=== PATIENT | female | born 1950 | race Caucasian/White ===

== ENCOUNTER 2020-05-09 23:51 | Emergency (ER) | payer MEDICARE, OTHER ==
[2020-05-10 01:38] LABS: #Monocytes 0.7 thou/uL (0.11-0.59); #Neutrophils 5.2 thou/uL (1.40-6.50); %Basophils 0.7 % (0.0-1.0); %Eosinophils 0.3 % (0.0-10.0); %Lymphocytes 14.2 % (21.0-51.0); %Monocytes 10.1 % (0.0-10.0); %Neutrophils 74.8 % (42.0-75.0); Hemoglobin 11.9 g/dL (12.0-16.0); Mean Corpuscular Hemoglobin 35.3 pg (27.0-31.0); Mean Platelet Volume 7.9 fL (7.4-10.4); Platelet Count 143 thou/uL (130-400); RBC Distribution Width 11.8 % (11.5-14.5); Red Blood Cell (RBC) Count 3.38 mill/uL (4.20-5.40); White Blood Cell (WBC) Count 6.9 thou/uL (4.8-10.8)
[2020-05-10] MEDS ORDERED: Ondansetron PF 4 MG/2 ML Vial ONE (01:42)
[2020-05-10 01:56] LABS: ALT (SGPT) 20 U/L (8-55); AST (SGOT) 29 U/L (5-34); Albumin 3.6 g/dL (3.4-4.8); Alkaline Phosphatase 279 U/L (40-110); Anion Gap 14 mmol/L (10-20); BUN (Urea Nitrogen) 7 mg/dL (9.8-20.1); Bilirubin, Total 1.6 mg/dL (0.2-1.2); Calc. Creatinine Clearance 0 mL/min (70-130); Calcium 8.7 mg/dL (7.8-10.44); Carbon Dioxide 19 mmol/L (23-31); Chloride 97 mmol/L (98-107); Estimated GFR-MDRD 82; Globulin 3.6 g/dL (2.4-3.5); Glucose 118 mg/dL (80-115); Protein, Total 7.2 g/dL (6.0-8.3); Sodium 126 mmol/L (136-145)
[2020-05-10] MEDS ORDERED: Phenazopyridine HCl 97.5 MG TABLET PO SCH (02:00)
[2020-05-10] MEDS ORDERED: Ciprofloxacin 500 MG TAB ONE (03:51)
[2020-05-10] MEDS ORDERED: Phenazopyridine HCl 97.5 MG TABLET ONE (03:51)
[2020-05-10] MEDS ORDERED: Promethazine HCl 25 MG/ML VIAL ONE (04:43)
[2020-05-10 05:05] LABS: Anion Gap 13 mmol/L (10-20); BUN (Urea Nitrogen) 7 mg/dL (9.8-20.1); Calc. Creatinine Clearance 0 mL/min (70-130); Calcium 8.2 mg/dL (7.8-10.44); Carbon Dioxide 20 mmol/L (23-31); Chloride 99 mmol/L (98-107); Estimated GFR-MDRD 89; Glucose 110 mg/dL (80-115); Potassium 3.8 mmol/L (3.5-5.1); Sodium 128 mmol/L (136-145)
--- NOTE | 2020-05-10 08:20 | CT ---
PRELIMINARY REPORT/[facility]/EMERGENCY AFTER HOURS PROCEDURE EXAM: CT Abdomen and Pelvis Without Intravenous Contrast CLINICAL HISTORY: Patient presents with less than 24 hours of dysuria, frequency, urgency, and hematu dwayne. She was seen at another facility earlier this evening and diagnosed with a UTI. She was prescrib ed Cipro, but has been unable to fill the prescription as no pharmacies were open near her. She compl ains of pain in her bladder. She also reports several hours of nausea with vomiting. TECHNIQUE: Axial computed tomography images of the abdomen and pelvis without intravenous contrast. CONTRAST: None. COMPARISON: None provided. FINDINGS: LUNG BASES: No basilar airspace consolidation or pleural effusion. LIVER: The liver has a nodular contour. The left lobe is enlarged. No identified liver lesion. Gas trohepatic and periesophageal collateral vessels are noted. GALLBLADDER AND BILE DUCTS: Cholecystectomy clips in the gallbladder fossa. Pneumobilia. No ductal d ilation. PANCREAS: Unremarkable. SPLEEN: Unremarkable. ADRENAL GLANDS: Unremarkable. KIDNEYS, URETERS, AND BLADDER: Unremarkable. No hydronephrosis or nephrolithiasis. No ureteral or hailey dder calculi. Diffuse bladder wall thickening with adjacent fat stranding. STOMACH AND BOWEL: Small hiatal hernia. No obstruction. No wall thickening. No CT evidence of coliti s or acute diverticulitis. APPENDIX: No CT evidence for appendicitis. PERITONEUM: No free fluid. No free air. LYMPH NODES: No lymphadenopathy. REPRODUCTIVE: Unremarkable as visualized. VASCULATURE: No aortic aneurysm. ABDOMINAL WALL AND SOFT TISSUES: Unremarkable. BONES: No fracture or suspicious osseous abnormality. Multilevel degenerative disc disease. Osteoar thritis of the bilateral hips and SI joints. IMPRESSION: Diffuse bladder wall thickening with adjacent fat stranding concerning for cystitis. Cirr hotic morphology of the liver. Portal hypertension with gastrohepatic and periesophageal collateral vessels. Pneumobilia. ELECTRONICALLY SIGNED BY: Jorge Tovar MD May 10, 2020 2:56:27 AM CDT FINAL REPORT EMERGENT AFTER HOURS CT OF THE ABDOMEN AND PELVIS WITHOUT CONTRAST: FINDINGS/IMPRESSION: I agree with the findings and impression given in the preliminary report per [facility] physici an. There is questionable stranding change surrounding the urinary bladder which could be secondary to cystitis. Correlate with urinalysis. POS: EAA
== END 2020-05-10 05:49 | disposition home or self-care (01) ==
LOC: ERS 23:51
DX: N39.0 Urinary tract infection, site not specified (principal); E86.0 Dehydration; R11.2 Nausea with vomiting, unspecified
CPT/HCPCS: 36415; 74176; 80053; 83690; 85025; 96361; 96365; 96375; J2405; J2550

== ENCOUNTER 2021-01-22 17:54 | Inpatient (IN) | payer MEDICARE, OTHER ==
[2021-01-22] MEDS ORDERED: Ondansetron ODT 8 MG TAB PO PRN (21:59)
[2021-01-22] MEDS ORDERED: D5 0.9% NS w/ 20 mEq KCl 1,000 ML IV SCH (22:00)
[2021-01-22] MEDS ORDERED: Ondansetron PF 4 MG/2 ML Vial IVP PRN ×2 (22:00→23:26)
[2021-01-22] MEDS ORDERED: Ketorolac Tromethamine 30 MG/ML VIAL IVP PRN ×2 (22:00→22:24)
[2021-01-22] MEDS ORDERED: Fentanyl 100 MCG/2 ML VIAL SLOW IVP PRN ×2 (22:00→23:29)
[2021-01-22 22:14] VITALS: BMI 23.5
[2021-01-22] MEDS ORDERED: Ondansetron ODT 4 MG TAB PO PRN (23:26)
[2021-01-22] MEDS ORDERED: Acetaminophen 325 MG TAB PO PRN (23:26)
[2021-01-22] MEDS: D5 1/2 NS w/10 mEq KCl 1,000 ML/1,000 ML BAG IV SCH (23:36)
[2021-01-22] MEDS ORDERED: Piperacillin/Tazobactam 3.375 GM in Sodium Chloride 0.9% 100 ML IVPB SCH (23:59)
[2021-01-23 02:35] LABS: Bilirubin Negative (Negative); Blood, Urine 1+ (Negative); Clarity Turbid (Clear); Glucose, Urine (Dipstick) Normal (Negative); Ketone, Urine Trace mg/dL (Negative); Leukocyte 500 Leu/uL (Negative); Nitrite Negative (Negative); Protein, Urine (Dipstick) 30 mg/dL (Neg-Trace); Squamous Epithelial 0-3 HPF (0-3); Urobilinogen Normal mg/dL (Less than 2); WBC/HPF Greater than 50 HPF (0-3)
[2021-01-23 02:36] LABS: Bacteria/HPF 2+ HPF (None Seen); Specific Gravity, Urine 1.052 (1.002-1.036)
[2021-01-23 02:38] LABS: SARS-CoV-2 PCR by NAA Not Detected (NotDetected)
[2021-01-23] MEDS: Piperacillin/Tazobactam 3.375 GM in Sodium Chloride 0.9% 100 ML IVPB SCH ×2 (05:00→13:40)
[2021-01-23 05:49] LABS: ALT (SGPT) 17 U/L (8-55); AST (SGOT) 26 U/L (5-34); Albumin 2.8 g/dL (3.4-4.8); Alkaline Phosphatase 193 U/L (40-110); Bilirubin, Direct 0.6 mg/dL (0.1-0.3); Protein, Total 5.7 g/dL (5.8-8.1)
[2021-01-23 05:50] LABS: Anion Gap 9 mmol/L (10-20); BUN (Urea Nitrogen) 8 mg/dL (9.8-20.1); Calc. Creatinine Clearance 69 mL/min (70-130); Calcium 7.8 mg/dL (7.8-10.44); Carbon Dioxide 21 mmol/L (23-31); Chloride 111 mmol/L (98-107); Glucose 116 mg/dL (80-115); Potassium 3.7 mmol/L (3.5-5.1); Sodium 137 mmol/L (136-145)
[2021-01-23 06:17] LABS: Band 1 % (5-11); Eosinophils 5 % (0-10); Hemoglobin 10.3 g/dL (12.0-16.0); Lymphocytes 39 % (21-51); MDiff Complete? YES; Mean Corpuscular HGB CONC 34.3 g/dL (32.0-36.0); Mean Corpuscular Hemoglobin 35.2 pg (27.0-31.0); Mean Platelet Volume 7.7 fL (7.4-10.4); Monocytes 19 % (0-10); Neutrophil 36 % (42-75); Platelet Count 115 thou/uL (130-400); Platelet Morphology Comment Appears Decreased; RBC Distribution Width 11.9 % (11.5-14.5); Red Blood Cell (RBC) Count 2.93 mill/uL (4.20-5.40); White Blood Cell (WBC) Count 4.7 thou/uL (4.8-10.8)
[2021-01-23] MEDS: Pantoprazole 40 MG VIAL IVP SCH (08:28)
[2021-01-23] MEDS: D5 1/2 NS w/10 mEq KCl 1,000 ML/1,000 ML BAG IV SCH ×2 (08:43→18:22)
[2021-01-23] MEDS ORDERED: Ursodiol 300 MG CAP PO SCH (09:00)
[2021-01-23] MEDS: Citalopram 20 MG TAB PO SCH (09:22)
[2021-01-23] MEDS ORDERED: Nitrofurantoin Monohyd/M-Cryst 100 MG CAP PO SCH (12:15)
[2021-01-23] MEDS ORDERED: Ketorolac Tromethamine 30 MG/ML VIAL IVP SCH (14:30)
[2021-01-23] MEDS: Gemfibrozil 600 MG TAB PO SCH (17:43)
[2021-01-23] MEDS: Nitrofurantoin Monohyd/M-Cryst 100 MG CAP PO SCH (20:31)
[2021-01-23] MEDS ORDERED: HYDROcodone/Acetaminophen 5/325 mg Tablet PO PRN (20:38)
[2021-01-23] MEDS: HYDROcodone/Acetaminophen 5/325 mg Tablet PO PRN (20:55)
[2021-01-23] MEDS ORDERED: Magnesium Oxide 400 MG TAB PO SCH (21:00)
[2021-01-24] MEDS: D5 1/2 NS w/10 mEq KCl 1,000 ML/1,000 ML BAG IV SCH ×2 (01:47→08:28)
[2021-01-24 05:55] LABS: #Eosinphils 0.1 thou/uL (0.0-0.7); #Lymphocytes 1.3 thou/uL (1.20-3.40); #Monocytes 0.6 thou/uL (0.11-0.59); #Neutrophils 2.5 thou/uL (1.40-6.50); %Basophils 0.5 % (0.0-1.0); %Eosinophils 2.9 % (0.0-10.0); %Lymphocytes 28.6 % (21.0-51.0); %Monocytes 13.1 % (0.0-10.0); Hemoglobin 9.7 g/dL (12.0-16.0); Mean Corpuscular HGB CONC 34.6 g/dL (32.0-36.0); Mean Corpuscular Hemoglobin 35.8 pg (27.0-31.0); Mean Platelet Volume 7.7 fL (7.4-10.4); Platelet Count 88 thou/uL (130-400); Red Blood Cell (RBC) Count 2.71 mill/uL (4.20-5.40); White Blood Cell (WBC) Count 4.6 thou/uL (4.8-10.8)
[2021-01-24 06:08] LABS: ALT (SGPT) 27 U/L (8-55); AST (SGOT) 49 U/L (5-34); Albumin 2.6 g/dL (3.4-4.8); Alkaline Phosphatase 202 U/L (40-110); Anion Gap 11 mmol/L (10-20); BUN (Urea Nitrogen) 5 mg/dL (9.8-20.1); Bilirubin, Total 1.6 mg/dL (0.2-1.2); Calc. Creatinine Clearance 75 mL/min (70-130); Calcium 7.6 mg/dL (7.8-10.44); Carbon Dioxide 22 mmol/L (23-31); Chloride 108 mmol/L (98-107); Globulin 2.7 g/dL (2.4-3.5); Glucose 113 mg/dL (80-115); Potassium 3.8 mmol/L (3.5-5.1); Protein, Total 5.3 g/dL (5.8-8.1); Sodium 137 mmol/L (136-145)
[2021-01-24 08:18] VITALS: BP 110/59; TEMP 97.9
[2021-01-24] MEDS: Gemfibrozil 600 MG TAB PO SCH ×2 (08:20→16:44)
[2021-01-24] MEDS: Nitrofurantoin Monohyd/M-Cryst 100 MG CAP PO SCH (08:21)
[2021-01-24] MEDS: Citalopram 20 MG TAB PO SCH (08:21)
[2021-01-24] MEDS: Pantoprazole 40 MG VIAL IVP SCH (08:27)
[2021-01-24] MEDS: Ursodiol 300 MG CAP PO SCH ×2 (09:39→15:04)
[2021-01-24] MEDS ORDERED: Ondansetron PF 4 MG/2 ML Vial IVP PRN (10:36)
[2021-01-24] MEDS: HYDROcodone/Acetaminophen 5/325 mg Tablet PO PRN (11:17)
[2021-01-24] MEDS ORDERED: Ondansetron ODT 4 MG TAB PO PRN (11:36)
[2021-01-24] MEDS ORDERED: HYDROcodone/Acetaminophen 5/325 mg Tablet PO PRN (16:06)
== END 2021-01-24 16:50 | disposition home or self-care (01) | DRG 445 ==
LOC: ONC 17:54 → OBSVTOIN 01-24 10:03
PROVIDERS: ADMIT Internal Medicine; ATTEND Internal Medicine
DX: K80.30 Calculus of bile duct with cholangitis, unspecified, without obstruction (principal); N39.0 Urinary tract infection, site not specified; I49.3 Ventricular premature depolarization; E78.5 Hyperlipidemia, unspecified; B96.20 Unspecified Escherichia coli [E. coli] as the cause of diseases classified elsewhere; Z88.1 Allergy status to other antibiotic agents; Z88.5 Allergy status to narcotic agent; Z90.49 Acquired absence of other specified parts of digestive tract; Z90.721 Acquired absence of ovaries, unilateral; Z79.899 Other long term (current) drug therapy
CPT/HCPCS: 36415; 71045; 80048; 80053; 80076; 81001; 85025; 86301; 87077; 87086; 87186; 87635; C9113; G0378; J1885; J2405; J2543; J3010; J3480; J3490; Q0162; U0003; U0005

== ENCOUNTER 2022-09-18 01:07 | Emergency (ER) | payer MEDICARE, OTHER ==
[2022-09-18 01:45] LABS: Hemoglobin 11.4 g/dL (12.0-16.0); Mean Corpuscular Hemoglobin 38.9 pg (27.0-31.0); RBC Distribution Width 13.7 % (11.5-14.5); Red Blood Cell (RBC) Count 2.94 mill/uL (4.20-5.40); White Blood Cell (WBC) Count 4.7 thou/uL (4.8-10.8)
[2022-09-18 02:04] LABS: ALT (SGPT) 36 U/L (8-55); AST (SGOT) 49 U/L (5-34); Albumin 2.6 g/dL (3.4-4.8); Alkaline Phosphatase 207 U/L (40-110); Anion Gap 12 mmol/L (10-20); BUN (Urea Nitrogen) 7 mg/dL (9.8-20.1); Bilirubin, Total 2.9 mg/dL (0.2-1.2); Calc. Creatinine Clearance 0 mL/min (70-130); Calcium 8.2 mg/dL (7.8-10.44); Carbon Dioxide 22 mmol/L (23-31); Chloride 105 mmol/L (98-107); Estimated GFR 86; Globulin 3.8 g/dL (2.4-3.5); Glucose 116 mg/dL (80-115); Lipase 81 U/L (8-78); Potassium 3.6 mmol/L (3.5-5.1); Protein, Total 6.4 g/dL (5.8-8.1); Sodium 135 mmol/L (136-145)
[2022-09-18 02:16] LABS: #Eosinphils 0.1 thou/uL (0.0-0.7); #Lymphocytes 1.5 thou/uL (1.20-3.40); #Monocytes 0.6 thou/uL (0.11-0.59); #Neutrophils 2.5 thou/uL (1.40-6.50); %Basophils 0.4 % (0.0-1.0); %Eosinophils 2.7 % (0.0-10.0); %Lymphocytes 31.6 % (21.0-51.0); %Monocytes 11.8 % (0.0-10.0); %Neutrophils 53.5 % (42.0-75.0); MDiff Complete? YES; Macrocytosis SLIGHT = 6-15 cells (100X) (0-5/hpf); Mean Platelet Volume 7.8 fL (7.4-10.4); Platelet Count 97 thou/uL (130-400); Platelet Morphology Comment Appears Decreased
[2022-09-18] MEDS ORDERED: Ondansetron ODT 4 MG TAB ONE (02:25)
[2022-09-18] MEDS ORDERED: Morphine 4 MG/ML VIAL ONE (04:40)
[2022-09-18 07:12] LABS: Bilirubin 1+ (Negative); Blood, Urine Negative (Negative); Clarity Clear (Clear); Glucose, Urine (Dipstick) Normal (Negative); Ketone, Urine Negative (Negative); Leukocyte Negative Leu/uL (Negative); Nitrite Negative (Negative); Protein, Urine (Dipstick) Negative (Neg-Trace); Specific Gravity, Urine 1.013 (1.002-1.036)
[2022-09-18] MEDS ORDERED: Iopamidol-370 76% 500 ML 1 ML ONE (09:55)
== END 2022-09-18 08:40 | disposition home or self-care (01) ==
LOC: ERS 01:07
DX: K29.60 Other gastritis without bleeding (principal); E78.00 Pure hypercholesterolemia, unspecified
CPT/HCPCS: 36415; 71275; 74174; 80053; 81003; 83605; 83690; 83880; 84484; 85025; 93005; 96361; 96374; J2270; Q0162; Q9967

== ENCOUNTER 2022-09-28 17:31 | Emergency (ER) | payer MEDICARE, OTHER ==
[2022-09-28 18:30] LABS: #Lymphocytes 0.8 thou/uL (1.20-3.40); #Monocytes 0.3 thou/uL (0.11-0.59); #Neutrophils 6.4 thou/uL (1.40-6.50); %Basophils 0.2 % (0.0-1.0); %Eosinophils 0.5 % (0.0-10.0); %Monocytes 4.3 % (0.0-10.0); Hemoglobin 10.7 g/dL (12.0-16.0); Mean Corpuscular HGB CONC 32.5 g/dL (32.0-36.0); Mean Corpuscular Hemoglobin 36.6 pg (27.0-31.0); Mean Platelet Volume 7.7 fL (7.4-10.4); Platelet Count 118 10x3/uL (130-400); RBC Distribution Width 14.5 % (11.5-14.5); Red Blood Cell (RBC) Count 2.92 mill/uL (4.20-5.40); White Blood Cell (WBC) Count 7.7 10x3/uL (4.8-10.8)
[2022-09-28 18:30] LABS: Bilirubin 2+ (Negative); Blood, Urine Negative (Negative); Clarity Turbid (Clear); Glucose, Urine (Dipstick) Normal (Negative); Ketone, Urine Negative (Negative); Leukocyte Negative Leu/uL (Negative); Nitrite Negative (Negative); Protein, Urine (Dipstick) Negative (Neg-Trace); Specific Gravity, Urine 1.011 (1.002-1.036); Urobilinogen Normal mg/dL (Less than 2); pH, Urine 7.5 (5.0-9.0)
[2022-09-28 18:52] LABS: ALT (SGPT) 54 U/L (8-55); AST (SGOT) 103 U/L (5-34); Albumin 2.6 g/dL (3.4-4.8); Alkaline Phosphatase 267 U/L (40-110); Anion Gap 10 mmol/L (10-20); BUN (Urea Nitrogen) 8 mg/dL (9.8-20.1); Bilirubin, Total 6.8 mg/dL (0.2-1.2); Calc. Creatinine Clearance 0 mL/min (70-130); Calcium 8.3 mg/dL (7.8-10.44); Carbon Dioxide 26 mmol/L (23-31); Chloride 99 mmol/L (98-107); Estimated GFR 86; Globulin 4.1 g/dL (2.4-3.5); Glucose 114 mg/dL (80-115); Lipase 41 U/L (8-78); Potassium 3.1 mmol/L (3.5-5.1); Protein, Total 6.7 g/dL (5.8-8.1); Sodium 132 mmol/L (136-145)
[2022-09-28] MEDS ORDERED: Morphine 4 MG/ML VIAL ONE ×2 (19:00→20:19)
[2022-09-28] MEDS ORDERED: Ondansetron PF 4 MG/2 ML Vial ONE (19:00)
== END 2022-09-28 20:32 | disposition home or self-care (01) ==
LOC: ERS 17:31
DX: R10.10 Upper abdominal pain, unspecified (principal); G89.29 Other chronic pain; E78.00 Pure hypercholesterolemia, unspecified
CPT/HCPCS: 80053; 81003; 83690; 85025; 96374; 96375; 96376; J2270; J2405

== ENCOUNTER 2022-10-02 14:57 | Emergency (ER) | payer MEDICARE, OTHER ==
[~2022-10-02 14:57] MED LIST: Iopamidol-370 76% 500 ML 1 ML ONE
[2022-10-02] MEDS ORDERED: Ondansetron PF 4 MG/2 ML Vial ONE (17:02)
[2022-10-02] MEDS ORDERED: Morphine 4 MG/ML VIAL ONE (17:02)
[2022-10-02] MEDS ORDERED: diphenhydrAMINE 50 MG/ML VIAL ONE (17:22)
[2022-10-02 17:29] LABS: #Eosinphils 0.1 thou/uL (0.0-0.7); #Lymphocytes 1.4 thou/uL (1.20-3.40); #Monocytes 0.9 thou/uL (0.11-0.59); #Neutrophils 3.7 thou/uL (1.40-6.50); %Basophils 0.8 % (0.0-1.0); %Eosinophils 1.2 % (0.0-10.0); %Lymphocytes 22.6 % (21.0-51.0); %Monocytes 14.8 % (0.0-10.0); %Neutrophils 60.6 % (42.0-75.0); Hemoglobin 11.2 g/dL (12.0-16.0); Mean Corpuscular HGB CONC 32.7 g/dL (32.0-36.0); Mean Corpuscular Hemoglobin 36.8 pg (27.0-31.0); Mean Platelet Volume 8.1 fL (7.4-10.4); Platelet Count 144 10x3/uL (130-400); RBC Distribution Width 14.8 % (11.5-14.5); Red Blood Cell (RBC) Count 3.04 mill/uL (4.20-5.40); White Blood Cell (WBC) Count 6.2 10x3/uL (4.8-10.8)
[2022-10-02] MEDS ORDERED: Haloperidol Lactate 5 MG/ML VIAL ONE (17:30)
[2022-10-02 17:51] LABS: ALT (SGPT) 120 U/L (8-55); AST (SGOT) 214 U/L (5-34); Albumin 2.8 g/dL (3.4-4.8); Alkaline Phosphatase 350 U/L (40-110); Anion Gap 11 mmol/L (10-20); BUN (Urea Nitrogen) 7 mg/dL (9.8-20.1); Bilirubin, Total 9.3 mg/dL (0.2-1.2); Calc. Creatinine Clearance 0 mL/min (70-130); Calcium 8.3 mg/dL (7.8-10.44); Carbon Dioxide 30 mmol/L (23-31); Chloride 92 mmol/L (98-107); Estimated GFR 80; Globulin 4.8 g/dL (2.4-3.5); Glucose 104 mg/dL (80-115); Lipase 41 U/L (8-78); Potassium 3.2 mmol/L (3.5-5.1); Protein, Total 7.6 g/dL (5.8-8.1); Sodium 130 mmol/L (136-145)
[2022-10-02 20:20] LABS: Bilirubin 1+ (Negative); Blood, Urine Negative (Negative); Clarity Clear (Clear); Glucose, Urine (Dipstick) Normal (Negative); Ketone, Urine Negative (Negative); Leukocyte Negative Leu/uL (Negative); Nitrite Negative (Negative); Protein, Urine (Dipstick) Negative (Neg-Trace); Specific Gravity, Urine 1.038 (1.002-1.036); Urobilinogen Normal mg/dL (Less than 2)
== END 2022-10-02 20:33 | disposition home or self-care (01) ==
LOC: ERS 14:57
DX: R10.816 Epigastric abdominal tenderness (principal); K74.60 Unspecified cirrhosis of liver
CPT/HCPCS: 36415; 74177; 80053; 81003; 83605; 83690; 84484; 85025; 87040; 87086; 93005; 96374; 96375; J1200; J1630; J2270; J2405; Q9967

== ENCOUNTER 2022-10-20 06:36 | Inpatient (IN) | payer MEDICARE, OTHER ==
[2022-10-20] MEDS ORDERED: Ondansetron ODT 4 MG TAB ONE (07:49)
[2022-10-20 09:02] LABS: SARS-CoV-2 NAA Rapid Test Not Detected (NotDetected)
[2022-10-20] MEDS ORDERED: Meropenem 500 MG in Sodium Chloride 0.9% 100 ML IVPB SCH (09:15)
[2022-10-20 10:07] LABS: ALT (SGPT) 71 U/L (8-55); AST (SGOT) 178 U/L (5-34); Albumin 2.1 g/dL (3.4-4.8); Alkaline Phosphatase 351 U/L (40-110); Anion Gap 10 mmol/L (10-20); BUN (Urea Nitrogen) 8 mg/dL (9.8-20.1); Bilirubin, Total 5.5 mg/dL (0.2-1.2); Calc. Creatinine Clearance 0 mL/min (70-130); Calcium 7.5 mg/dL (7.8-10.44); Carbon Dioxide 28 mmol/L (23-31); Chloride 95 mmol/L (98-107); Estimated GFR 94; Globulin 3.7 g/dL (2.4-3.5); Glucose 140 mg/dL (80-115); Magnesium 1.5 mg/dL (1.6-2.6); Protein, Total 5.8 g/dL (5.8-8.1); Sodium 130 mmol/L (136-145)
[2022-10-20 10:16] LABS: Potassium 2.6 mmol/L (3.5-5.1)
[2022-10-20 10:24] LABS: #Lymphocytes 0.5 thou/uL (1.20-3.40); #Monocytes 0.2 thou/uL (0.11-0.59); #Neutrophils 1.2 thou/uL (1.40-6.50); %Eosinophils 0.1 % (0.0-10.0); %Lymphocytes 24.3 % (21.0-51.0); %Monocytes 10.4 % (0.0-10.0); %Neutrophils 65.3 % (42.0-75.0); Hemoglobin 9.8 g/dL (12.0-16.0); Hypochromia SLIGHT = 6-15 cells (100X) (0-5/hpf); Large Platelets SLIGHT; MDiff Complete? YES; Macrocytosis SLIGHT = 6-15 cells (100X) (0-5/hpf); Mean Corpuscular HGB CONC 33.3 g/dL (32.0-36.0); Mean Corpuscular Hemoglobin 37.3 pg (27.0-31.0); Mean Platelet Volume 9.9 fL (7.4-10.4); Platelet Count 38 10x3/uL (130-400); Platelet Morphology Comment Appears Decreased; RBC Distribution Width 16.9 % (11.5-14.5); Red Blood Cell (RBC) Count 2.62 mill/uL (4.20-5.40)
[2022-10-20] MEDS ORDERED: NS 0.9% w/ 40 MEQ KCL 1,000 ML IV ONE (10:45)
[2022-10-20] MEDS ORDERED: Oseltamivir 75 MG CAP PO SCH (11:30)
[2022-10-20] MEDS ORDERED: Ondansetron PF 4 MG/2 ML Vial IVP PRN (11:34)
[2022-10-20] MEDS ORDERED: Acetaminophen 650 MG Suppository PR PRN (11:34)
[2022-10-20] MEDS ORDERED: Ondansetron ODT 4 MG TAB PO PRN (11:34)
[2022-10-20] MEDS ORDERED: Acetaminophen 325 MG TAB PO PRN (11:34)
[2022-10-20] MEDS ORDERED: Electrolyte Replacement Protocol 1 EACH FS PRN (13:44)
[2022-10-20] MEDS ORDERED: Meropenem 1 GM in Sodium Chloride 0.9% 100 ML IVPB SCH (14:00)
[2022-10-20 16:23] VITALS: BMI 21.6
[2022-10-20 16:35] LABS: Platelet Count 34 10x3/uL (130-400)
[2022-10-20] MEDS: Potassium Chloride 20 MEQ TAB PO SCH ×2 (17:12→21:03)
[2022-10-20] MEDS: Meropenem 1 GM in Sodium Chloride 0.9% 100 ML IVPB SCH (18:18)
[2022-10-20] MEDS: Guaifenesin DM 100-10/5 ML UDCUP PO PRN (18:35)
[2022-10-20] MEDS: Spironolactone 100 MG TAB PO SCH (20:16)
[2022-10-20] MEDS: Oseltamivir 75 MG CAP PO SCH (20:16)
[2022-10-20] MEDS ORDERED: Non-Formulary Item 1 EACH (Ursodiol [Ursodiol] 500 MG Tablet) PO SCH (21:00)
[2022-10-20] MEDS ORDERED: Potassium Chloride 20 MEQ TAB PO SCH (21:00)
[2022-10-21] MEDS: Meropenem 1 GM in Sodium Chloride 0.9% 100 ML IVPB SCH ×3 (02:00→17:53)
[2022-10-21 06:09] LABS: #Eosinphils 0.1 thou/uL (0.0-0.7); #Lymphocytes 1.9 thou/uL (1.20-3.40); #Monocytes 1.1 thou/uL (0.11-0.59); #Neutrophils 4.3 thou/uL (1.40-6.50); %Basophils 0.2 % (0.0-1.0); %Eosinophils 0.9 % (0.0-10.0); %Lymphocytes 26.3 % (21.0-51.0); %Monocytes 14.4 % (0.0-10.0); %Neutrophils 58.2 % (42.0-75.0); Hemoglobin 8.8 g/dL (12.0-16.0); Mean Corpuscular HGB CONC 33.3 g/dL (32.0-36.0); Mean Corpuscular Hemoglobin 37.4 pg (27.0-31.0); Mean Platelet Volume 9.3 fL (7.4-10.4); Platelet Count 41 10x3/uL (130-400); Red Blood Cell (RBC) Count 2.36 mill/uL (4.20-5.40); White Blood Cell (WBC) Count 7.3 10x3/uL (4.8-10.8)
[2022-10-21 06:13] LABS: Anion Gap 6 mmol/L (10-20); BUN (Urea Nitrogen) 7 mg/dL (9.8-20.1); Calc. Creatinine Clearance 72 mL/min (70-130); Calcium 7.4 mg/dL (7.8-10.44); Carbon Dioxide 29 mmol/L (23-31); Chloride 102 mmol/L (98-107); Estimated GFR 97; Glucose 106 mg/dL (80-115); Potassium 3.7 mmol/L (3.5-5.1); Sodium 133 mmol/L (136-145)
[2022-10-21] MEDS: Spironolactone 100 MG TAB PO SCH ×3 (09:31→20:00)
[2022-10-21] MEDS: Furosemide 40 MG TAB PO SCH (09:31)
[2022-10-21] MEDS: Oseltamivir 75 MG CAP PO SCH ×2 (09:31→19:41)
[2022-10-21] MEDS: Albuterol 200 PUFF (6.7GM INHALER) INH SCH ×2 (13:21→14:09)
[2022-10-21] MEDS: Guaifenesin DM 100-10/5 ML UDCUP PO PRN (21:41)
[2022-10-22] MEDS: Albuterol 200 PUFF (6.7GM INHALER) INH SCH ×5 (01:57→18:41)
[2022-10-22] MEDS: Meropenem 1 GM in Sodium Chloride 0.9% 100 ML IVPB SCH ×3 (02:18→17:27)
[2022-10-22 05:14] LABS: INR-International Normal Ratio 1.4; Prothrombin Time 18.1 sec (12.0-14.7)
[2022-10-22 05:15] LABS: PTT 43.4 sec (22.9-36.1)
[2022-10-22 05:25] LABS: Anion Gap 4 mmol/L (10-20); BUN (Urea Nitrogen) 8 mg/dL (9.8-20.1); Calc. Creatinine Clearance 68 mL/min (70-130); Calcium 7.3 mg/dL (7.8-10.44); Carbon Dioxide 30 mmol/L (23-31); Chloride 101 mmol/L (98-107); Estimated GFR 95; Glucose 119 mg/dL (80-115); Potassium 3.4 mmol/L (3.5-5.1); Sodium 132 mmol/L (136-145)
[2022-10-22 05:36] LABS: Hemoglobin 8.2 g/dL (12.0-16.0); Mean Corpuscular HGB CONC 33.6 g/dL (32.0-36.0); Mean Platelet Volume 9.9 fL (7.4-10.4); Platelet Count 43 10x3/uL (130-400); RBC Distribution Width 17.4 % (11.5-14.5); Red Blood Cell (RBC) Count 2.16 mill/uL (4.20-5.40); White Blood Cell (WBC) Count 5.8 10x3/uL (4.8-10.8)
[2022-10-22 05:59] LABS: Lymphocytes 26 % (21-51); MDiff Complete? YES; Macrocytosis SLIGHT = 6-15 cells (100X) (0-5/hpf); Monocytes 15 % (0-10); Neutrophil 59 % (42-75); Platelet Morphology Comment Appears Decreased
[2022-10-22] MEDS ORDERED: Potassium Chloride 20 MEQ TAB PO SCH (08:00)
[2022-10-22] MEDS: Oseltamivir 75 MG CAP PO SCH ×2 (08:42→20:18)
[2022-10-22] MEDS: Furosemide 40 MG TAB PO SCH (08:42)
[2022-10-22] MEDS: Spironolactone 100 MG TAB PO SCH ×2 (08:42→20:21)
[2022-10-22] MEDS ORDERED: Vancomycin 1 GM in Premix Bag 1 BAG IVPB SCH ×2 (13:15→21:00)
[2022-10-23] MEDS: Meropenem 1 GM in Sodium Chloride 0.9% 100 ML IVPB SCH ×3 (01:26→18:49)
[2022-10-23] MEDS: Vancomycin HCl 500 MG in Sodium Chloride 0.9% 100 ML IVPB SCH ×2 (01:27→14:48)
[2022-10-23] MEDS: Albuterol 200 PUFF (6.7GM INHALER) INH SCH ×3 (06:44→13:22)
[2022-10-23 07:20] LABS: Hemoglobin 8.1 g/dL (12.0-16.0); Mean Corpuscular HGB CONC 33.4 g/dL (32.0-36.0); Mean Corpuscular Hemoglobin 38.4 pg (27.0-31.0); Mean Platelet Volume 8.6 fL (7.4-10.4); Platelet Count 51 10x3/uL (130-400); RBC Distribution Width 17.7 % (11.5-14.5); White Blood Cell (WBC) Count 4.9 10x3/uL (4.8-10.8)
[2022-10-23 07:35] LABS: Anion Gap 6 mmol/L (10-20); BUN (Urea Nitrogen) 9 mg/dL (9.8-20.1); Calc. Creatinine Clearance 69 mL/min (70-130); Calcium 7.2 mg/dL (7.8-10.44); Carbon Dioxide 29 mmol/L (23-31); Chloride 102 mmol/L (98-107); Estimated GFR 96; Glucose 93 mg/dL (80-115); Potassium 3.5 mmol/L (3.5-5.1); Sodium 133 mmol/L (136-145)
[2022-10-23] MEDS: Furosemide 40 MG TAB PO SCH (08:22)
[2022-10-23] MEDS: Spironolactone 100 MG TAB PO SCH ×2 (08:22→20:17)
[2022-10-23] MEDS: Oseltamivir 75 MG CAP PO SCH ×2 (08:23→20:16)
[2022-10-23 09:50] LABS: Band 2 % (5-11); Eosinophils 1 % (0-10); Lymphocytes 42 % (21-51); MDiff Complete? YES; Metamyelocyte 1 % (0-0); Monocytes 17 % (0-10); Neutrophil 37 % (42-75); Platelet Morphology Comment Appears Decreased; Polychromasia SLIGHT = 2-3 cells (100X) (0-2/hpf)
[2022-10-23] MEDS ORDERED: Potassium Chloride 20 MEQ TAB PO SCH (13:00)
[2022-10-23] MEDS ORDERED: Albuterol 200 PUFF (6.7GM INHALER) INH PRN (13:41)
[2022-10-24 01:41] LABS: Vancomycin, Trough 11.6 ug/mL
[2022-10-24] MEDS: Meropenem 1 GM in Sodium Chloride 0.9% 100 ML IVPB SCH ×3 (02:34→17:45)
[2022-10-24] MEDS: Vancomycin HCl 750 MG in Sodium Chloride 0.9% 250 ML 250 ML IVPB SCH ×2 (02:35→15:15)
[2022-10-24] MEDS: Vancomycin HCl 500 MG in Sodium Chloride 0.9% 100 ML IVPB SCH (03:38)
[2022-10-24 07:21] LABS: Hemoglobin 8.6 g/dL (12.0-16.0); Mean Corpuscular HGB CONC 32.9 g/dL (32.0-36.0); Mean Corpuscular Hemoglobin 38.1 pg (27.0-31.0); Mean Platelet Volume 9.2 fL (7.4-10.4); Platelet Count 59 10x3/uL (130-400); RBC Distribution Width 18.2 % (11.5-14.5); Red Blood Cell (RBC) Count 2.24 mill/uL (4.20-5.40); White Blood Cell (WBC) Count 4.3 10x3/uL (4.8-10.8)
[2022-10-24 07:36] LABS: Anion Gap 8 mmol/L (10-20); BUN (Urea Nitrogen) 8 mg/dL (9.8-20.1); Calc. Creatinine Clearance 79 mL/min (70-130); Carbon Dioxide 27 mmol/L (23-31); Chloride 105 mmol/L (98-107); Estimated GFR 99; Glucose 89 mg/dL (80-115); Potassium 3.7 mmol/L (3.5-5.1); Sodium 136 mmol/L (136-145)
[2022-10-24] MEDS: Oseltamivir 75 MG CAP PO SCH ×2 (08:35→21:51)
[2022-10-24] MEDS: Spironolactone 100 MG TAB PO SCH ×2 (08:35→15:15)
[2022-10-24] MEDS: Furosemide 40 MG TAB PO SCH (08:35)
[2022-10-24] MEDS: Guaifenesin DM 100-10/5 ML UDCUP PO PRN ×3 (08:37→22:12)
[2022-10-24] MEDS ORDERED: Fluconazole 100 MG TAB PO SCH (09:00)
[2022-10-24 12:08] LABS: Anisocytosis SLIGHT = 6-15 cells (100X) (0-5/hpf); Eosinophils 1 % (0-10); Lymphocytes 25 % (21-51); MDiff Complete? YES; Macrocytosis SLIGHT = 6-15 cells (100X) (0-5/hpf); Monocytes 19 % (0-10); Neutrophil 55 % (42-75); Platelet Morphology Comment Appears Decreased; Polychromasia SLIGHT = 2-3 cells (100X) (0-2/hpf)
[2022-10-24] MEDS: Ursodiol 300 MG CAP PO SCH ×2 (15:16→21:51)
[2022-10-24] MEDS: Albuterol 200 PUFF (6.7GM INHALER) INH SCH (19:25)
[2022-10-24] MEDS: Docusate 100 MG CAP PO SCH (21:51)
[2022-10-25] MEDS: Vancomycin HCl 750 MG in Sodium Chloride 0.9% 250 ML 250 ML IVPB SCH (02:27)
[2022-10-25] MEDS: Meropenem 1 GM in Sodium Chloride 0.9% 100 ML IVPB SCH ×2 (02:27→10:37)
[2022-10-25] MEDS: Guaifenesin DM 100-10/5 ML UDCUP PO PRN (02:39)
[2022-10-25 04:52] LABS: Hemoglobin 7.8 g/dL (12.0-16.0); Mean Corpuscular HGB CONC 33.4 g/dL (32.0-36.0); Mean Corpuscular Hemoglobin 38.8 pg (27.0-31.0); Mean Platelet Volume 8.7 fL (7.4-10.4); Platelet Count 66 10x3/uL (130-400); RBC Distribution Width 17.7 % (11.5-14.5); Red Blood Cell (RBC) Count 2.01 mill/uL (4.20-5.40); White Blood Cell (WBC) Count 5.5 10x3/uL (4.8-10.8)
[2022-10-25 05:06] LABS: Anion Gap 8 mmol/L (10-20); BUN (Urea Nitrogen) 8 mg/dL (9.8-20.1); Calc. Creatinine Clearance 68 mL/min (70-130); Calcium 7.1 mg/dL (7.8-10.44); Carbon Dioxide 27 mmol/L (23-31); Chloride 102 mmol/L (98-107); Estimated GFR 95; Glucose 93 mg/dL (80-115); Potassium 3.4 mmol/L (3.5-5.1); Sodium 134 mmol/L (136-145)
[2022-10-25 05:19] LABS: Hypochromia SLIGHT = 6-15 cells (100X) (0-5/hpf); Lymphocytes 42 % (21-51); MDiff Complete? YES; Macrocytosis SLIGHT = 6-15 cells (100X) (0-5/hpf); Monocytes 4 % (0-10); Neutrophil 54 % (42-75); Platelet Morphology Comment Appears Decreased
[2022-10-25] MEDS ORDERED: Potassium Chloride 20 MEQ TAB PO SCH (07:00)
[2022-10-25] MEDS: Albuterol 200 PUFF (6.7GM INHALER) INH SCH ×2 (07:02→12:55)
[2022-10-25 08:14] VITALS: BP 105/60; TEMP 97.5
[2022-10-25] MEDS: Ursodiol 300 MG CAP PO SCH ×2 (08:38→14:54)
[2022-10-25] MEDS: Docusate 100 MG CAP PO SCH (08:39)
[2022-10-25] MEDS: Oseltamivir 75 MG CAP PO SCH (08:39)
[2022-10-25] MEDS: Furosemide 40 MG TAB PO SCH (08:39)
[2022-10-25] MEDS: Spironolactone 100 MG TAB PO SCH ×2 (08:39→15:02)
[2022-10-25] MEDS ORDERED: Fluconazole 100 MG TAB PO SCH (09:00)
[2022-10-25] MEDS ORDERED: Doxycycline 100 MG CAP PO SCH (09:00)
== END 2022-10-25 16:17 | disposition home health service (06) | DRG 194 ==
LOC: ERS 06:36 → ERHOLD 10:48 → T4-B 15:54
PROVIDERS: ADMIT Internal Medicine; ATTEND Internal Medicine
DX: J10.01 Influenza due to other identified influenza virus with the same other identified influenza virus pneumonia (principal); E87.1 Hypo-osmolality and hyponatremia; R78.81 Bacteremia; Z16.12 Extended spectrum beta lactamase (ESBL) resistance; R18.8 Other ascites; Z20.822 Contact with and (suspected) exposure to COVID-19; K74.3 Primary biliary cirrhosis; D69.6 Thrombocytopenia, unspecified; K75.4 Autoimmune hepatitis; E87.6 Hypokalemia; E83.42 Hypomagnesemia; K21.9 Gastro-esophageal reflux disease without esophagitis; B96.20 Unspecified Escherichia coli [E. coli] as the cause of diseases classified elsewhere; Z88.1 Allergy status to other antibiotic agents; Z88.5 Allergy status to narcotic agent; Z88.8 Allergy status to other drugs, medicaments and biological substances; Z79.899 Other long term (current) drug therapy; Z90.49 Acquired absence of other specified parts of digestive tract; Z98.890 Other specified postprocedural states; Z87.440 Personal history of urinary (tract) infections; Z86.718 Personal history of other venous thrombosis and embolism; Z79.01 Long term (current) use of anticoagulants
CPT/HCPCS: 36415; 71045; 71250; 80048; 80053; 80202; 83735; 84145; 85025; 85610; 85730; 87070; 87205; 93005; 94760; J2185; J2405; J3370; J3475; J3480; J3490; J7050; Q0162

== ENCOUNTER 2023-06-16 19:14 | Emergency (ER) | payer MEDICARE, OTHER ==
[2023-06-16 19:58] LABS: Hemoglobin 10.3 g/dL (12.0-16.0); Mean Corpuscular HGB CONC 33.6 g/dL (32.0-36.0); Mean Corpuscular Hemoglobin 34.7 pg (27.0-31.0); Mean Corpuscular Volume 103.4 fl (78.0-98.0); Mean Platelet Volume 9.1 fL (7.4-10.4); Platelet Count 240 10x3/uL (130-400); RBC Distribution Width 13.9 % (11.5-14.5); Red Blood Cell (RBC) Count 2.97 mill/uL (4.20-5.40); White Blood Cell (WBC) Count 4.9 10x3/uL (4.8-10.8)
[2023-06-16 20:12] LABS: Manual Diff?? YES
[2023-06-16 20:13] LABS: Delete Auto Diff?? YES
[2023-06-16 20:21] LABS: ALT (SGPT) 19 U/L (8-55); AST (SGOT) 21 U/L (5-34); Albumin 4.1 g/dL (3.4-4.8); Alkaline Phosphatase 133 U/L (40-110); Anion Gap 16 mmol/L (10-20); BUN (Urea Nitrogen) 16 mg/dL (9.8-20.1); Bilirubin, Total 0.2 mg/dL (0.2-1.2); Calc. Creatinine Clearance 0 mL/min (70-130); Calcium 9.2 mg/dL (7.8-10.44); Carbon Dioxide 23 mmol/L (23-31); Chloride 103 mmol/L (98-107); Estimated GFR 70; Globulin 2.5 g/dL (2.4-3.5); Glucose 121 mg/dL (80-115); Potassium 5.4 mmol/L (3.5-5.1); Protein, Total 6.6 g/dL (5.8-8.1); Sodium 137 mmol/L (136-145)
[2023-06-16] MEDS ORDERED: Acetaminophen 500 MG TAB ONE (20:22)
[2023-06-16 20:39] LABS: Band 27 % (5-11); CellaVision Operator ID LAB.KB; Large Platelets 0.9 % (0-5); Lymphocytes 15 % (21-51); Macrocytosis SLIGHT = 6-15 cells HPF (0-5); Monocytes 10 % (0-10); Myelocyte 1 % (0-0); Neutrophil 47 % (42-75); Ovalocytes SLIGHT = 2-5 cells HPF (0-1); Platelet Adequacy Comment Platelets Normal; Polychromasia SLIGHT = 2-3 cells HPF (0-2); Total Cell Count 110
[2023-06-16] MEDS ORDERED: Morphine 4 MG/ML VIAL ONE (20:49)
[2023-06-16] MEDS ORDERED: Ondansetron PF 4 MG/2 ML Vial ONE (20:53)
== END 2023-06-17 02:45 ==
LOC: ERS 19:14
DX: S42.201A Unspecified fracture of upper end of right humerus, initial encounter for closed fracture (principal); W19.XXXA Unspecified fall, initial encounter
CPT/HCPCS: 70450; 71045; 72125; 80053; 85025; 93005; 96374; 96375; J2270; J2405